=== PATIENT | male | born 1950 | race Caucasian/White ===

== ENCOUNTER → 2019-04-16 15:30 | Outpatient (BNVA) | payer MEDICARE, SELFPAY | PROVIDERS: Family Provider Nurse Practitioner Family; PCP Nurse Practitioner Family; Visit Provider Nurse Practitioner Family | DX: E03.9 Hypothyroidism, unspecified (principal); R10.13 Epigastric pain; Z13.6 Encounter for screening for cardiovascular disorders | CPT/HCPCS: 80053; 80061; 84443; 85025 ==

== ENCOUNTER 2019-05-28 15:07 | Outpatient (CLI) | payer MEDICARE, SELFPAY ==
--- NOTE | 2019-05-28 15:00 | XRR_ITS ---
PROCEDURE INFORMATION: Exam: XR Abdomen, 1 View Exam date and time: 05/28/2019 3:26 PM Age: 68 years old Clinical indication: Condition or disease; Kidney or ureter condition; Calculus (stone) in kidney; Prior surgery; Surgery type: Gb, appy; Additional info: Urolithiasis TECHNIQUE: Imaging protocol: XR of the abdomen. Views: Frontal supine view of the abdomen. 1 View. COMPARISON: CR XR KUB [id number] 08/03/2017 9:27 AM FINDINGS: Gastrointestinal tract: Normal. No bowel dilation. There is abundant colonic stool. No impaction. Organs: Probable cholecystectomy clips are noted in the right upper quadrant. Unchanged nephrolithiasis with the largest calculus projected over the lower pole left kidney measuring 3 mm in size. Subtle calculus projected over the mid to lower pole right kidney also measures 3 mm. No definite calculi in the projection of the ureters or bladder. Vasculature: Probable phleboliths in the pelvis. Bones/joints: Unremarkable. XR/XR KUB [id number] IMPRESSION: No acute findings. Unchanged nephrolithiasis.
== END 2019-05-28 15:08 | disposition home or self-care (01) ==
LOC: RAD 15:14
PROVIDERS: Family Provider Nurse Practitioner Family; PCP Nurse Practitioner Family; Visit Provider Urology
DX: N20.0 Calculus of kidney (principal); R39.9 Unspecified symptoms and signs involving the genitourinary system
CPT/HCPCS: 74018; 81001

== ENCOUNTER → 2019-10-01 11:08 | Outpatient (BNVA) | payer MEDICARE, SELFPAY | PROVIDERS: Family Provider Nurse Practitioner Family; PCP Nurse Practitioner Family; Visit Provider Nurse Practitioner Family | DX: E78.5 Hyperlipidemia, unspecified (principal); E03.9 Hypothyroidism, unspecified | CPT/HCPCS: 80053; 80061; 84443; 85025 ==

== ENCOUNTER → 2019-11-19 15:40 | Outpatient (BNVA) | payer MEDICARE, SELFPAY | PROVIDERS: Family Provider Nurse Practitioner Family; PCP Nurse Practitioner Family; Visit Provider Nurse Practitioner | DX: E03.9 Hypothyroidism, unspecified (principal); I10 Essential (primary) hypertension; M10.9 Gout, unspecified; M79.672 Pain in left foot | CPT/HCPCS: 84550; 85025 ==

== ENCOUNTER → 2019-11-20 14:00 | Outpatient (BNVA) | payer MEDICARE, SELFPAY | PROVIDERS: Family Provider Nurse Practitioner Family; PCP Nurse Practitioner Family; Visit Provider Nurse Practitioner | DX: M79.672 Pain in left foot (principal) | CPT/HCPCS: 73630 ==

== ENCOUNTER → 2020-03-30 15:27 | Outpatient (BNVA) | payer MEDICARE, SELFPAY | PROVIDERS: Family Provider Nurse Practitioner Family; PCP Nurse Practitioner Family; Visit Provider Nurse Practitioner Family | DX: E03.9 Hypothyroidism, unspecified (principal); I10 Essential (primary) hypertension; E78.5 Hyperlipidemia, unspecified | CPT/HCPCS: 80053; 84443; 85025 ==

== ENCOUNTER → 2021-01-06 14:38 | Outpatient (BNVA) | payer MEDICARE, SELFPAY | PROVIDERS: Family Provider Nurse Practitioner Family; PCP Nurse Practitioner Family; Visit Provider Nurse Practitioner Family | DX: E03.9 Hypothyroidism, unspecified (principal); E78.5 Hyperlipidemia, unspecified; I10 Essential (primary) hypertension | CPT/HCPCS: 80053; 80061; 84443; 85025 ==

== ENCOUNTER 2021-04-28 11:15 | Outpatient (CLI) | payer MEDICARE, SELFPAY ==
--- NOTE | 2021-04-28 11:20 | XRR_ITS ---
PROCEDURE INFORMATION: Exam: XR Chest Exam date and time: 04/28/2021 11:20 AM Age: 70 years old Clinical indication: Cough; Prior surgery; Surgery type: Gallblader; Additional info: R05.9 - cough, unspecified TECHNIQUE: Imaging protocol: XR of the chest. Views: 2 views. COMPARISON: CR XR KUB [id number] 05/28/2019 3:21 PM FINDINGS: Lungs: Bilateral patchy hazy interstitial pulmonary infiltrates are present. Pleural spaces: Unremarkable. No pleural effusion. No pneumothorax. Heart/Mediastinum: Unremarkable. No cardiomegaly. Bones/joints: Unremarkable. XR/XR chest 2V* [id number] IMPRESSION: There are bilateral patchy hazy interstitial pulmonary infiltrates. This may be due to an interstitial viral pneumonia.
== END 2021-04-28 11:16 | disposition home or self-care (01) ==
PROVIDERS: PCP Nurse Practitioner Family; Visit Provider Nurse Practitioner Family
DX: R05.9 Cough, unspecified (principal); R91.8 Other nonspecific abnormal finding of lung field
CPT/HCPCS: 71046; 80053; 85025; 86140

== ENCOUNTER 2022-05-15 15:38 | Outpatient (CLI) | payer MEDICARE, SELFPAY ==
--- NOTE | 2022-05-15 16:07 | USCV_ITS ---
AbdullahiFlynn Age: 71 Gender: M : 1950 Exam Date: 05/15/2022 16:13 Ordering Phys: Regina Stanton APN- JAS [employer]IAN Technologist: CT Exam Location: [facility] [place]_ Indication: pain PROCEDURES: Venous duplex imaging was performed in only the right lower extremity. In addition, the posterior tibial and peroneal trunk were evaluated. FINDINGS: Normal 2-D Doppler and augmentation and compressibility throughout the lower extremity venous structures. Additional imaging through the proximal calf veins also reveals no thrombus. Limited evaluation of the greater saphenous vein is patent with no thrombus.. Complex cystic mass with low level echos and no vascularity measuring 4.3 cm in the right popliteal fossa. CONCLUSIONS No DVT right lower extremity. Dr. Melany Flores DO (Electronically Signed) Final Date: 16 May 2022 07:44 S
--- NOTE | 2022-05-15 16:08 | XRR_ITS ---
PROCEDURE INFORMATION: Exam: XR Right Knee Exam date and time: 05/15/2022 4:31 PM Age: 71 years old Clinical indication: Pain; Knee; Right; Additional info: Pain in lower leg TECHNIQUE: Imaging protocol: Radiologic exam of the Right knee. Views: 1 or 2 views. COMPARISON: No relevant prior studies available. FINDINGS: Bones/joints: Small joint effusion. Alignment is normal. No acute fracture. Small patellar osteophytes. Joint spaces are preserved. Soft tissues: Medial soft tissue edema. XR/XR knee RT 1-2V [id number] IMPRESSION: 1. No acute osseous abnormality. 2. Small joint effusion. 3. Medial soft tissue swelling at the knee.
== END 2022-05-15 15:39 | disposition home or self-care (01) ==
LOC: RAD 15:39
PROVIDERS: PCP Nurse Practitioner Family; Visit Provider Nurse Practitioner Family
DX: M79.661 Pain in right lower leg (principal); M25.461 Effusion, right knee; M79.89 Other specified soft tissue disorders
CPT/HCPCS: 73560; 93971

== ENCOUNTER → 2022-06-07 13:36 | Outpatient (BNVA) | payer MEDICARE, SELFPAY | PROVIDERS: PCP Nurse Practitioner Family; Referring Provider Nurse Practitioner Family; Visit Provider Specialist | DX: M25.561 Pain in right knee (principal) | CPT/HCPCS: 73560; 73565; 99204 ==

== ENCOUNTER 2024-08-21 11:40 | Outpatient (CLI) | payer MEDICARE, SELFPAY ==
--- NOTE | 2024-08-21 11:45 | XR_ITS ---
WS: [id number] Lumbar spine, 5 views including both obliques, 08/21/2024 Clinical Data: LUMBAR PAIN Comparison: None. Findings: No compression fractures or subluxation is seen. There is degenerative disc narrowing at L5-S1. There are osteophytes of the lower thoracic and all the lumbar vertebral bodies. There is diffuse osteoporosis. The transverse processes and SI joints are normal. The oblique films show no spondylolysis. There are cholecystectomy clips in the right upper quadrant. XR/XR lumbar spine min 4V [id number] Impression: 1. Degenerative disc narrowing L5-S1. 2. Osteoarthritis and osteoporosis of all the lumbar vertebral bodies. 3. Negative for spondylolysis.
== END 2024-08-21 11:41 | disposition home or self-care (01) ==
PROVIDERS: PCP Nurse Practitioner Family; Visit Provider Nurse Practitioner Family
DX: M51.379 Other intervertebral disc degeneration, lumbosacral region without mention of lumbar back pain or lower extremity pain (principal); M47.896 Other spondylosis, lumbar region; M81.0 Age-related osteoporosis without current pathological fracture; M25.78 Osteophyte, vertebrae; Z90.49 Acquired absence of other specified parts of digestive tract
CPT/HCPCS: 11721; 72110; 99203